=== PATIENT | male | born 1970 | race Caucasian/White ===

== ENCOUNTER 2017-07-07 22:57 | Inpatient (IN) | payer SELFPAY ==
[~2017-07-07] VITALS: Ht 177.8 cm; Wt 76.7 kg
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
[2017-07-07] MEDS ORDERED: IV RINGERS,LACTATED 1000ML 1,000 ML IV SCH (23:15)
[2017-07-07 23:26] LABS: BILIRUBIN,URINE NEGATIVE (NEG); GLUCOSE,URINE 100 mg/dL (NEG); NITRITE,URINE NEGATIVE (NEG); PH,URINE 5.5; PROTEIN,URINE NEGATIVE (NEG-TRACE)
[2017-07-07 23:31] LABS: RBC,URINE 0 /HPF (0-2); WBC,URINE RARE /HPF (0-4)
[2017-07-07 23:32] LABS: BACTERIA,URINE 0 /HPF (0-FEW); SQUAMOUS EPITHELIAL CELL,UR OCC /LPF
[2017-07-07 23:36] LABS: BARBITURATES NEG (NEG); BENZODIAZEPINES NEG (NEG); CANNABINOIDS NEG (NEG); COCAINE NEG (NEG); METHADONE NEG (NEG); OPIATES NEG (NEG); PHENCYCLIDINE NEG (NEG)
[2017-07-07 23:40] LABS: BASO # 0.1 x10^3/uL (0.0-0.2); BASO % 1 % (0-3); EOS % 1 % (0-3); HEMATOCRIT 37.4 % (39.0-53.0); HEMOGLOBIN 13.5 g/dL (13.0-17.5); LYMPH # 2.5 x10^3/uL (1.0-4.8); LYMPH % 34 % (24-48); MEAN CORPUSCULAR HEMOGLOBIN 32 pg (25-35); MEAN CORPUSCULAR HGB CONC 36 g/dL (31-37); MEAN CORPUSCULAR VOLUME 88 fL (79-100); MONO % 9 % (0-9); NEUT % 55 % (31-73); PLATELET COUNT 267 x10^3/uL (140-400); RED BLOOD COUNT 4.27 x10^6/uL (4.30-5.70); RED CELL DISTRIBUTION WIDTH 13.1 % (11.5-14.5); WHITE BLOOD COUNT 7.3 x10^3/uL (4.0-11.0)
[2017-07-07 23:47] LABS: CALCIUM 8.5 mg/dL (8.5-10.1); CREATININE 1.1 mg/dL (0.7-1.3); GFR 71.8; POTASSIUM 3.5 mmol/L (3.5-5.1)
[2017-07-07 23:50] LABS: ETHANOL < 10 mg/dL (0-10)
[2017-07-07 23:58] LABS: ALBUMIN 3.5 g/dL (3.4-5.0); DIRECT BILIRUBIN 0.1 mg/dL (0.0-0.2); TOTAL BILIRUBIN 0.4 mg/dL (0.2-1.0); TOTAL PROTEIN 7.2 g/dL (6.4-8.2)
[2017-07-08] MEDS ORDERED: IV NORMAL SALINE 1000ML BAG 1,000 ML IV ONE (01:00)
[2017-07-08] MEDS ORDERED: IOHEXOL 300 MG/ML 75 ML VIAL IV ONE (01:15)
[2017-07-08] MEDS ORDERED: CONTRAST GIVEN MC PRN (01:15)
--- NOTE | 2017-07-08 01:16 | RAD ---
INDICATION: ams COMPARISON: None. TECHNIQUE: Axial CT images obtained through the head without intravenous contrast. One or more of the following individualized dose reduction techniques were utilized for this examination: 1. Automated exposure control; 2. Adjustment of the mA and/or kV according to patient size; 3. Use of iterative reconstruction technique. FINDINGS: No intracranial hemorrhage. No midline shift. Basal cisterns patent. Ventricles and sulci are unremarkable. No acute osseous abnormality. Mucosal thickening maxillary sinuses. IMPRESSION: 1. No acute intracranial hemorrhage. 2. Mucosal thickening maxillary sinuses. Electronically signed by: Jose Boland MD (07/08/2017 1:13 AM) [facility]
--- NOTE | 2017-07-08 01:24 | RAD ---
INDICATION: left flank pain; Omni 300, 75ml COMPARISON: None. TECHNIQUE: Axial CT images were obtained through the abdomen and pelvis with intravenous contrast. One or more of the following individualized dose reduction techniques were utilized for this examination: 1. Automated exposure control; 2. Adjustment of the mA and/or kV according to patient size; 3. Use of iterative reconstruction technique. FINDINGS: Chest Base: Partially imaged without gross abnormality. Small fat-containing left inguinal hernia. Calcifications within the penile region measuring up to about 12 mm. Vessels: No abdominal aortic aneurysm. Liver/Biliary: No intrahepatic bile duct dilation. Contraction of gallbladder. Pancreas: No peripancreatic edema. Spleen: Normal. Kidneys/Adrenal: 2 mm suspected nonobstructive right renal stone. No hydronephrosis. Bladder: No definite adjacent inflammation. GI: No free air. No bowel dilation to suggest obstruction. Appendix does not appear inflamed. Degenerative changes of the hips and spine. Partial sacralization of right transverse process L5 with hypertrophic changes in the region. IMPRESSION: 1. No evidence of bowel obstruction or appendicitis. 2. The gallbladder is contracted. There is a large amount of motion within the region therefore cannot accurately assess for adjacent inflammation on this exam. 3. Suspected nonobstructive right renal stone without hydronephrosis. 4. Multilevel degenerative changes the spine with central canal and neural foraminal stenosis at multiple levels with some of the regions appearing severe. 5. Dense calcification within the penile region. Electronically signed by: Jose Boland MD (07/08/2017 1:21 AM) [facility]
[2017-07-08] MEDS ORDERED: ONDANSETRON PF 4 MG/2 ML VIAL. IV PRN (02:00)
[2017-07-08 03:05] VITALS: BP 129/73
[2017-07-08] MEDS ORDERED: SERT100T PO (04:41)
[2017-07-08 07:35] VITALS: BP 139/79
[2017-07-08] MEDS ORDERED: POTASSIUM CHLORIDE 20 MEQ TABLET.ER. PO ONE (09:45)
[2017-07-08] MEDS ORDERED: MORPHINE SULFATE 4 MG/ML DISP.SYRIN. IV PRN (09:45)
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
[2017-07-08] MEDS: MULTIVIT INFUSN,ADULT 4,VIT K 10 ML, THIAMINE 100 MG, FOLIC ACID 1 MG in IV NORMAL SALI... IV SCH (10:25)
[2017-07-08] MEDS: SERTRALINE 50 MG TABLET. PO SCH (10:25)
[2017-07-08 11:07] VITALS: BP 134/80
[2017-07-08 15:12] VITALS: BP 127/71
[2017-07-08] MEDS: oxyCODONE/APAP 5/325 1 TAB TABLET PO PRN (16:26)
[2017-07-08 18:57] VITALS: BP 119/66
[2017-07-08 23:01] VITALS: BP 121/72
[2017-07-09 02:58] VITALS: BP 127/80
[2017-07-09 05:27] LABS: BASO % 1 % (0-3); EOS % 1 % (0-3); HEMOGLOBIN 13.4 g/dL (13.0-17.5); LYMPH # 2.2 x10^3/uL (1.0-4.8); LYMPH % 36 % (24-48); MEAN CORPUSCULAR HEMOGLOBIN 31 pg (25-35); MEAN CORPUSCULAR HGB CONC 35 g/dL (31-37); MEAN CORPUSCULAR VOLUME 87 fL (79-100); MONO % 8 % (0-9); NEUT % 55 % (31-73); PLATELET COUNT 235 x10^3/uL (140-400); RED BLOOD COUNT 4.35 x10^6/uL (4.30-5.70); RED CELL DISTRIBUTION WIDTH 13.3 % (11.5-14.5)
[2017-07-09 05:42] LABS: CALCIUM 8.3 mg/dL (8.5-10.1); CREATININE 0.8 mg/dL (0.7-1.3); GFR 103.6; POTASSIUM 3.6 mmol/L (3.5-5.1)
[2017-07-09] MEDS: SERTRALINE 50 MG TABLET. PO SCH (06:57)
[2017-07-09 07:00] VITALS: BP 139/74
[2017-07-09 10:33] VITALS: BP 148/81
--- NOTE | 2017-07-09 13:29 | PDOC ---
PROGRESS NOTES Chief Complaint Chief Complaint suicidal ideation ASSESSMENT AND PLAN: 1. Suicidal ideation: w/o specific plan. await PAT team's input. remains 1: 1 sitter 2. Hx depression with schizotypal: off meds 3. Multisubstance abuse methamphetamine, EtOH 4. Back pain: prob small renal stone, passed. pain meds PRN History of Present Illness History of Present Illness sleeping, responding to verbal input w/o opening eyes. denies pain Vitals Vitals Vital Signs Date Time Temp Pulse Resp B/P (MAP) Pulse Ox O2 Delivery O2 Flow Rate FiO2 07/09/17 10:33 98.1 72 20 148/81 (103) 97 Room Air 98.1 Physical Exam General: Alert, Oriented X3, Cooperative, No acute distress Heart: Regular rate Lungs: Clear Abdomen: Normal bowel sounds, Soft Extremities: No clubbing, No edema, Normal pulses Skin: No rashes, No breakdown Labs LABS Laboratory Tests Test 07/08/17 17:25 07/08/17 21:15 07/09/17 03:30 07/09/17 06:56 Glucose (Fingerstick) 163 mg/dL (70-99) 231 mg/dL (70-99) 201 mg/dL (70-99) White Blood Count 6.0 x10^3/uL (4.0-11.0) Red Blood Count 4.35 x10^6/uL (4.30-5.70) Hemoglobin 13.4 g/dL (13.0-17.5) Hematocrit 38.0 % (39.0-53.0) Mean Corpuscular Volume 87 fL (79-100) Mean Corpuscular Hemoglobin 31 pg (25-35) Mean Corpuscular Hemoglobin Concent 35 g/dL (31-37) Red Cell Distribution Width 13.3 % (11.5-14.5) Platelet Count 235 x10^3/uL (140-400) Neutrophils (%) (Auto) 55 % (31-73) Lymphocytes (%) (Auto) 36 % (24-48) Monocytes (%) (Auto) 8 % (0-9) Eosinophils (%) (Auto) 1 % (0-3) Basophils (%) (Auto) 1 % (0-3) Neutrophils # (Auto) 3.3 x10^3uL (1.8-7.7) Lymphocytes # (Auto) 2.2 x10^3/uL (1.0-4.8) Monocytes # (Auto) 0.5 x10^3/uL (0.0-1.1) Eosinophils # (Auto) 0.1 x10^3/uL (0.0-0.7) Basophils # (Auto) 0.0 x10^3/uL (0.0-0.2) Sodium Level 142 mmol/L (136-145) Potassium Level 3.6 mmol/L (3.5-5.1) Chloride Level 107 mmol/L (98-107) Carbon Dioxide Level 29 mmol/L (21-32) Anion Gap 6 (6-14) Blood Urea Nitrogen 7 mg/dL (8-26) Creatinine 0.8 mg/dL (0.7-1.3) Estimated GFR (Cockcroft-Gault) 103.6 Glucose Level 138 mg/dL (70-99) Calcium Level 8.3 mg/dL (8.5-10.1) Test 07/09/17 11:58 Glucose (Fingerstick) 148 mg/dL (70-99) IDRIS WALKER MD Jul 09, 2017 13:29
[2017-07-09 15:00] VITALS: BP 146/79
[2017-07-09] MEDS: MULTIVIT INFUSN,ADULT 4,VIT K 10 ML, THIAMINE 100 MG, FOLIC ACID 1 MG in IV NORMAL SALI... IV SCH (17:29)
[2017-07-09 19:15] VITALS: BP 137/58
[2017-07-09 23:10] VITALS: BP 159/86
[2017-07-10 07:17] VITALS: BP 132/94
[2017-07-10] MEDS: SERTRALINE 50 MG TABLET. PO SCH (07:51)
[2017-07-10] MEDS: MULTIVIT INFUSN,ADULT 4,VIT K 10 ML, THIAMINE 100 MG, FOLIC ACID 1 MG in IV NORMAL SALI... IV SCH (07:51)
[2017-07-10 11:17] VITALS: BP 140/88
[2017-07-10] MEDS: oxyCODONE/APAP 5/325 1 TAB TABLET PO PRN (11:40)
--- NOTE | 2017-07-10 18:52 | DS ---
DATE OF DISCHARGE: 07/10/2017 CHIEF COMPLAINT: Suicidal ideation, meth abuse. HOSPITAL COURSE: The patient is a 47-year-old gentleman with known depression, who presented to the Emergency Room intoxicated on meth with suicidal ideation and was therefore admitted with 1:1 sitter. He was started on a withdrawal protocol. Pact team evaluated him on the when he was too drowsy to respond. On the , he was deemed stable for discharge and followup with his psychiatrist JOSE LUIS. The patient did complain of back pain at the time of admission and CT was consistent with a suspicion of passed renal stone with dilated ureter. Symptoms, however, completely resolved. PHYSICAL EXAMINATION: VITAL SIGNS: Blood pressure of 148/81, heart rate of 72, respiratory rate of 20 and he is afebrile. GENERAL: This is a malnourished 47-year-old gentleman, awake, alert, in no acute distress. LUNGS: Clear. HEART: Regular rate and rhythm. ABDOMEN: Has positive bowel sounds. Soft and nontender. EXTREMITIES: Show no edema. DISCHARGE DIAGNOSES: Depression and methamphetamine abuse. DISCHARGE DISPOSITION: To home. DISCHARGE CONDITION: Improved. DISCHARGE MEDICATIONS: Please refer to MAR. DISCHARGE INSTRUCTIONS: The patient will follow up with psychiatrist JOSE LUIS. IDRIS WALKER MD DR: CORDELL/nts JOB#: [id number] / [id number]
--- NOTE | 2017-07-11 01:40 | ACF ---
Admission Forms Criteria RENAL COLIC AND KIDNEY STONES (Place ' X' for any and all applicable criteria): Admission is indicated for 1 or more of the following (1)(2)(3)(4)(5)(6)(7): [ ]I. Bilateral obstruction [ ]II. Single kidney with obstruction [ ]III. Transplanted kidney with obstruction [ ]IV. Open surgical procedure needed (eg, pyonephrosis, stone removal not amenable to other means) [X]V. Inpatient admission required[A] rather than observation care (see Renal Colic and Kidney Stones: Observation Care guideline as appropriate) because of 1 or more of the following(15)( 16): a) Hemodynamic instability b) Acute renal failure [X] c) Severe pain requiring acute inpatient management d) Urinary tract infection identified e) Vomiting that is severe or persistent f) Need for IV hydration support (inability to maintain oral hydration) despite outpatient and observation care treatment g) Percutaneous or endoscopic procedure requiring inpatient admission h) Other condition, treatment, or monitoring requiring inpatient admission Extended stay beyond goal length of stay may be needed for(2)(3)(31): [ ]a) Failed initial stone removal (32) [ ]b) Pyonephrosis [ ]c) Obstructive uropathy with urinary tract infection [ ]d) Procedure complications [ ]e) Comorbidities (22) The original [employer] content created by [employer] has been revised. The portions of the content which have been revised are identified through the use of italic text, and [facility] has neither reviewed nor approved the modified material. All other unmodified content is copyright [facility] [employer]. Please see references footnoted in the original [email or web address] edition 2014 Admission Criteria Met?: Yes UDAY SEYMOUR Jul 11, 2017 01:40
== END 2017-07-10 14:22 | disposition home or self-care (01) | DRG 897 ==
LOC: ER 22:57 → 6 SOUTH 07-08 01:30 → UNDOADMIN 07-08 01:50
PROVIDERS: ADMIT Internal Medicine; ATTEND Internal Medicine
DX: F15.129 Other stimulant abuse with intoxication, unspecified (principal); F10.10 Alcohol abuse, uncomplicated; R45.851 Suicidal ideations; E46 Unspecified protein-calorie malnutrition; N20.0 Calculus of kidney; F15.10 Other stimulant abuse, uncomplicated; F32.9 Major depressive disorder, single episode, unspecified; G89.29 Other chronic pain; F20.9 Schizophrenia, unspecified; F17.200 Nicotine dependence, unspecified, uncomplicated; F41.9 Anxiety disorder, unspecified; Y90.9 Presence of alcohol in blood, level not specified; Z88.6 Allergy status to analgesic agent; Z88.8 Allergy status to other drugs, medicaments and biological substances
CPT/HCPCS: 36415; 70450; 74177; 80048; 80076; 80307; 80329; 81001; 82962; 85025; 96360; 96361; G0480; J2060; J7030; J7120; 99285-25; G0479